=== PATIENT | male | born 1970 | race Caucasian/White ===

== ENCOUNTER 2017-03-02 06:29 | Emergency (ER) | payer OTHER ==
[~2017-03-02 06:29] MED LIST: ADVAIR 250-501 EACH IH; ALBUTEROL0.83 MG/ML INH; ALBUTEROL17 GM INH; AMOXICILLIN PO; ANTIINFLAMMATORY; BACTRIM DS TABL1 TA2 PO; BENZONATATE PO; BP; CHOLESTEROL MED; CLEOCIN PO; COLCHICINE 0.6 MG PO; COMBIVENT INHALER; COMBIVENT MININEB INH; CORTISPORIN-TC10 ML OT; DICLOFENAC PO; DIOVAN40 MG PO; EYE DROPS OS; EYE OS; FLEXERIL PO; FLEXERIL10 M1 PO; FLONASE 0.05% N16 G1; IBUPROFEN PO; IBUPROFEN800 MG PO; INDOCIN PO; INDOCIN50 MG PO; KEFLEX500 MG PO; LEVAQUIN PO; MORGIDOX100 MG PO; MOTRIN600 MG PO; MUSCLE RELAXANT PO; MUSCLE RELAXER; NAPROXEN PO; NORCO 5MG-325MG PO; OCUFLOX10 ML OP; PERCOCET 5-3251 TAB PO; PRAVACHOL PO; PRAVACHOL20 MG PO; PREDNISONE PO; PREDNISONE10 MG/DOSE PO; ROBITUSSIN AC PO; ROBITUSSIN PO; SKELAXIN PO; SPIRIVA18 MCG INH; SYMBICORT INH; TYLENOL/CODEINE1 TA1 PO; VICODIN 5/1 TAB 5/50 PO; VIGAMOX3 M1 AD; VOLTAREN75 MG; VOLTAREN75 MG PO; ZITHROMAX PO; ZYLOPRIM100 MG PO; ZYRTEC10 M2 PO; [UNRECOGNIZED DRUG - REMARK]
== END 2017-03-02 07:47 | disposition home or self-care (01) ==
LOC: SED 06:29
DX: M10.9 Gout, unspecified (principal); I10 Essential (primary) hypertension; J44.9 Chronic obstructive pulmonary disease, unspecified; G89.29 Other chronic pain; F10.20 Alcohol dependence, uncomplicated; F17.200 Nicotine dependence, unspecified, uncomplicated
CPT/HCPCS: 99283